=== PATIENT | female | born 1970 | race Caucasian/White ===

== ENCOUNTER 2024-05-26 08:27 | Day surgery (SDC) | payer MEDICARE ==
[2024-05-26 08:41] LABS: HCG URINE TEST NEGATIVE (NEGATIVE)
[2024-05-26 09:04] LABS: Barbiturate,Urine NEGATIVE (NEGATIVE); Benzodiazepine,Urine NEGATIVE (NEGATIVE); Cocaine,Urine NEGATIVE (NEGATIVE); Methadone,Urine NEGATIVE (NEGATIVE); Opiate,Urine NEGATIVE (NEGATIVE); PCP,Urine NEGATIVE (NEGATIVE); THC,Urine NEGATIVE (NEGATIVE)
[2024-05-26 09:36] LABS: Amphetamine,Urine POSITIVE (NEGATIVE)
== END 2024-05-26 09:00 | disposition home or self-care (01) ==
LOC: SDC-PAIN 08:27
PROVIDERS: ATTEND Psychiatry & Neurology Pain Medicine
DX: Z53.8 Procedure and treatment not carried out for other reasons (principal); R73.03 Prediabetes; Z79.85 Long-term (current) use of injectable non-insulin antidiabetic drugs; F11.20 Opioid dependence, uncomplicated
CPT/HCPCS: 80307; 81025; 82947